=== PATIENT | male | born 1985 | race Caucasian/White ===

== ENCOUNTER 2020-04-12 16:14 | Emergency (ER) | payer SELFPAY ==
--- NOTE | 2020-04-12 17:10 | RAD ---
Exam: Chest one view HISTORY:Chest pain. Comparison: None FINDINGS: Cardiac silhouette: Normal Aorta: Unremarkable Pulmonary vessels: Normal Costophrenic angles: Clear LUNGS: No masses or consolidation. Pneumothorax: None Osseous abnormalities: None IMPRESSION: No acute cardiopulmonary process.
--- NOTE | 2020-04-12 17:11 | RAD ---
Exam:Right foot 3 views HISTORY: Infection. COMPARISON: None FINDINGS: Soft tissue swelling, subcutaneous emphysema involving the fifth digit. There is erosion, d emineralization involving the fifth metacarpal phalangeal joint space. Remaining osseous structures are unremarkable. Remaining joint spaces are preserved. Lisfranc alignment is maintained. IMPRESSION: 1. Osteomyelitis and cellulitis involving the fifth digit. There is presumed septic joint involving t he fifth metacarpal phalangeal joint space. There is erosion, destruction and subluxation of the fifth metacarpal phalangeal joint space.
[2020-04-12] MEDS ORDERED: Ibuprofen 800 MG TAB ONE (17:18)
[2020-04-12] MEDS ORDERED: Cefepime 2 GM VIAL ONE (17:18)
[2020-04-12] MEDS ORDERED: Sodium Chloride 0.9% 1,000 ML ONE ×2 (17:18→19:04)
[2020-04-12] MEDS ORDERED: Sodium Chloride 0.9% 100 ML ONE ×2 (17:18→20:14)
[2020-04-12 17:23] LABS: #Basophils 0.2 thou/uL (0.0-0.2); #Eosinphils 0.3 thou/uL (0.0-0.7); #Lymphocytes 1.7 thou/uL (1.20-3.40); #Monocytes 1.1 thou/uL (0.11-0.59); #Neutrophils 10.6 thou/uL (1.40-6.50); %Basophils 1.2 % (0.0-1.0); %Lymphocytes 12.2 % (21.0-51.0); %Monocytes 7.6 % (0.0-10.0); Hemoglobin 13.6 g/dL (14.0-18.0); Mean Corpuscular HGB CONC 32.7 g/dL (32.0-36.0); Mean Corpuscular Hemoglobin 26.4 pg (27.0-31.0); Mean Corpuscular Volume 80.7 fL (78.0-98.0); Mean Platelet Volume 5.8 fL (7.4-10.4); Platelet Count 550 thou/uL (130-400); RBC Distribution Width 11.5 % (11.5-14.5); Red Blood Cell (RBC) Count 5.13 mill/uL (4.70-6.10); White Blood Cell (WBC) Count 13.8 thou/uL (4.8-10.8)
[2020-04-12 17:38] LABS: ALT (SGPT) 27 U/L (8-55); AST (SGOT) 17 U/L (5-34); Albumin 4.3 g/dL (3.5-5.0); Alkaline Phosphatase 63 U/L (40-110); Anion Gap 20 mmol/L (10-20); BUN (Urea Nitrogen) 8 mg/dL (8.9-20.6); Bilirubin, Total 0.3 mg/dL (0.2-1.2); Calc. Creatinine Clearance 0 mL/min (70-130); Calcium 9.5 mg/dL (7.8-10.44); Carbon Dioxide 22 mmol/L (22-29); Chloride 97 mmol/L (98-107); Globulin 4.2 g/dL (2.4-3.5); Glucose 190 mg/dL (70-105); Potassium 3.8 mmol/L (3.5-5.1); Protein, Total 8.5 g/dL (6.0-8.3); Sodium 135 mmol/L (136-145)
[2020-04-12 17:39] LABS: CRP (Inflammatory) 7.23 mg/dL (= or < 0.5)
[2020-04-12] MEDS ORDERED: Vancomycin 1.5 GRAM/300 ML BAG ONE (18:09)
[2020-04-12 19:33] LABS: Amphetamine Not Detected (NotDetected); Barbiturates Screen Not Detected (NotDetected); Benzodiazepine Screen Not Detected (NotDetected); Cocaine Metabolite Screen Not Detected (NotDetected); Medtox Control Line Valid? VALID (VALID); Methadone Not Detected (NotDetected); Methamphetamine Not Detected (NotDetected); Opiate Screen Not Detected (NotDetected); Oxycodone Screen Not Detected (NotDetected); Phencyclidine (PCP) Not Detected (NotDetected); THC/Cannabinoid Screen Not Detected (NotDetected); Tricyclic Screen Not Detected (NotDetected)
[2020-04-12] MEDS ORDERED: Vancomycin HCl 500 MG VIAL ONE (20:14)
[2020-04-12] MEDS ORDERED: Clindamycin/D5W 900 mg/50 ml Premix Bag ONE (20:36)
== END 2020-04-12 21:17 | disposition short-term general hospital (02) ==
LOC: MADERS 16:14
DX: E11.69 Type 2 diabetes mellitus with other specified complication (principal); M86.9 Osteomyelitis, unspecified; L03.115 Cellulitis of right lower limb; M10.9 Gout, unspecified; Z79.84 Long term (current) use of oral hypoglycemic drugs; Z79.899 Other long term (current) drug therapy
CPT/HCPCS: 36415; 71045; 80053; 80306; 82550; 83605; 84443; 85025; 86140; 87040; 87070; 87077; 87186; 87205; 94760; 96365; 96366; 96367; 96368; J0692; J3370; J3490; J7050

== ENCOUNTER 2020-10-28 08:45 | Emergency (ER) | payer OTHER, SELFPAY ==
[2020-10-28] MEDS ORDERED: Cephalexin 500 MG CAP ONE (10:26)
== END 2020-10-28 10:33 | disposition home or self-care (01) ==
LOC: MADERS 08:45
DX: S92.342A Displaced fracture of fourth metatarsal bone, left foot, initial encounter for closed fracture (principal); E11.9 Type 2 diabetes mellitus without complications; I10 Essential (primary) hypertension; M10.9 Gout, unspecified; Z79.899 Other long term (current) drug therapy; Z79.84 Long term (current) use of oral hypoglycemic drugs

== ENCOUNTER 2020-11-01 08:22 | Emergency (ER) | payer SELFPAY ==
[~2020-11-01 08:22] MED LIST: Sodium Chloride 0.9% 1,000 ML BAG ONE
[2020-11-01] MEDS ORDERED: Sodium Chloride 0.9% 250 ML 250 ML ONE (09:01)
[2020-11-01 09:07] LABS: #Basophils 0.2 thou/uL (0.0-0.2); #Eosinphils 0.5 thou/uL (0.0-0.7); #Lymphocytes 1.8 thou/uL (1.20-3.40); #Monocytes 0.6 thou/uL (0.11-0.59); %Basophils 1.4 % (0.0-1.0); %Eosinophils 4.1 % (0.0-10.0); %Lymphocytes 16.5 % (21.0-51.0); %Monocytes 5.1 % (0.0-10.0); %Neutrophils 72.9 % (42.0-75.0); Hemoglobin 12.8 g/dL (14.0-18.0); Mean Corpuscular HGB CONC 33.2 g/dL (32.0-36.0); Mean Corpuscular Hemoglobin 27.2 pg (27.0-31.0); Mean Corpuscular Volume 82.1 fL (78.0-98.0); Mean Platelet Volume 6.6 fL (7.4-10.4); Platelet Count 453 thou/uL (130-400); RBC Distribution Width 11.9 % (11.5-14.5); Red Blood Cell (RBC) Count 4.71 mill/uL (4.70-6.10); White Blood Cell (WBC) Count 10.9 thou/uL (4.8-10.8)
[2020-11-01 09:15] LABS: Base Excess-Venous -1.2 mmol/L (-2.0 to 3.0); CO2 Tension (PvCO2) 46.4 mmHg (42.0-51.0); Calcium, Ionized 1.19 mmol/L (1.15-1.33); Chloride 100 mmol/L (98-107); Hemoglobin - Calc 13.9 g/dL (14.0-18.0); Potassium 3.9 mmol/L (3.5-5.1); Sodium 136 mmol/L (138-145); T. Carbon Dioxide 26.4 mmol/L (22.0-28.0); vO2 Saturation-calc 76.6 % (60.0-85.0)
[2020-11-01 09:23] LABS: ALT (SGPT) 43 U/L (8-55); AST (SGOT) 35 U/L (5-34); Albumin 4.1 g/dL (3.5-5.0); Alkaline Phosphatase 83 U/L (40-110); Anion Gap 21 mmol/L (10-20); BUN (Urea Nitrogen) 9 mg/dL (8.9-20.6); Bilirubin, Total 0.5 mg/dL (0.2-1.2); Calc. Creatinine Clearance 0 mL/min (70-130); Calcium 9.1 mg/dL (7.8-10.44); Carbon Dioxide 20 mmol/L (22-29); Chloride 99 mmol/L (98-107); Globulin 3.4 g/dL (2.4-3.5); Glucose 285 mg/dL (70-105); Potassium 4.2 mmol/L (3.5-5.1); Protein, Total 7.5 g/dL (6.0-8.3); Sodium 136 mmol/L (136-145)
[2020-11-01] MEDS ORDERED: Sodium Chloride 0.9% 100 ML ONE (11:29)
[2020-11-01] MEDS ORDERED: Piperacillin/Tazobactam 4.5 GM VIAL ONE (11:29)
== END 2020-11-01 12:58 | disposition short-term general hospital (02) ==
LOC: MADERS 08:22
DX: L97.529 Non-pressure chronic ulcer of other part of left foot with unspecified severity (principal); Z91.19 Patient's noncompliance with other medical treatment and regimen; I10 Essential (primary) hypertension; E11.9 Type 2 diabetes mellitus without complications; Z79.84 Long term (current) use of oral hypoglycemic drugs; Z79.899 Other long term (current) drug therapy
CPT/HCPCS: 80053; 82330; 82803; 83605; 85025; 85652; 86140; 87040; 96365; 96367; J2543; J3370; J3490; J7050

== ENCOUNTER 2025-02-14 07:43 | Emergency (ER) | payer SELFPAY ==
[2025-02-14] MEDS ORDERED: Cefepime 2 GM VIAL ONE (08:44)
[2025-02-14 08:51] LABS: Hematocrit 38.3 % (42.0-52.0); Hemoglobin 11.9 g/dL (14.0-18.0); Mean Corpuscular Hemoglobin 24.7 pg (27.0-31.0); Mean Corpuscular Volume 79.7 fl (78.0-98.0); Platelet Count 605 10x3/uL (130-400); Red Blood Cell (RBC) Count 4.81 mill/uL (4.70-6.10); White Blood Cell (WBC) Count 25.2 10x3/uL (4.8-10.8)
[2025-02-14 08:55] LABS: INR-International Normal Ratio 1.3; Prothrombin Time 15.9 sec (12.0-14.7)
[2025-02-14 08:56] LABS: PTT 31.6 sec (22.9-36.1)
[2025-02-14 09:00] LABS: ALT (SGPT) Less than 4 U/L (Less than 45); AST (SGOT) 38 U/L (11-34); Albumin 2.1 g/dL (3.1-4.5); Alkaline Phosphatase 127 U/L (40-110); Anion Gap 21 mmol/L (10-20); BUN (Urea Nitrogen) 47 mg/dL (8.9-20.6); Bilirubin, Total 0.5 mg/dL (0.3-1.2); Calc. Creatinine Clearance 0 mL/min (70-130); Calcium 9.8 mg/dL (7.8-10.44); Carbon Dioxide 21 mmol/L (22-29); Chloride 88 mmol/L (98-107); Globulin 6.6 g/dL (2.4-3.5); Glucose 360 mg/dL (70-105); Potassium 3.5 mmol/L (3.5-5.1); Sodium 126 mmol/L (136-145)
[2025-02-14] MEDS ORDERED: Acetaminophen 500 MG TAB ONE (09:07)
[2025-02-14 09:11] LABS: Platelet Adequacy Comment Appears Increased
[2025-02-14 09:40] LABS: Magnesium 1.7 mg/dL (1.6-2.6)
[2025-02-14 09:44] LABS: Troponin I Less than 0.010 ng/mL (< 0.028)
[2025-02-14 09:48] LABS: Bicarbonate (HCO3v) 20.5 mmol/L (22.0-28.0); CO2 Tension (PvCO2) 38.8 mmHg (42.0-51.0); Calcium, Ionized 1.11 mmol/L (1.15-1.33); Chloride 93 mmol/L (98-107); Hemoglobin - Calc 12.6 g/dL (14.0-18.0); Potassium 3.4 mmol/L (3.5-5.1); Sodium 124 mmol/L (138-145); T. Carbon Dioxide 21.7 mmol/L (22.0-28.0); vO2 Saturation-calc 85.1 % (60.0-85.0)
[2025-02-14] MEDS ORDERED: Ketorolac Tromethamine 30 MG (1 mL) VIAL ONE (10:21)
[2025-02-14 10:25] LABS: Bacteria/HPF Rare-Few HPF (None Seen); CAUTI Indications for Culture Fever or rigors; Glucose, Urine (Dipstick) 250 mg/dL (Negative); Leukocyte Negative (Negative); Protein, Urine (Dipstick) Negative (Neg-Trace); RBC/HPF 0-3 HPF (0-3); Specific Gravity, Urine 1.020 (1.005-1.030); WBC/HPF 0-3 HPF (0-3)
[2025-02-14 10:26] LABS: Urine Culture Reflex No No
== END 2025-02-14 13:39 | disposition short-term general hospital (02) ==
LOC: MADERS 07:43
DX: A41.9 Sepsis, unspecified organism (principal); M86.171 Other acute osteomyelitis, right ankle and foot; M72.6 Necrotizing fasciitis; I10 Essential (primary) hypertension; E11.9 Type 2 diabetes mellitus without complications; E78.5 Hyperlipidemia, unspecified; Z89.422 Acquired absence of other left toe(s); Z89.421 Acquired absence of other right toe(s)
CPT/HCPCS: 71045; 80053; 81001; 82010; 82330; 82803; 83605; 83735; 84100; 84484; 85025; 85610; 85730; 86140; 87040; 87149; 93005; 94760; 96365; 96366; 96367; 96375; J0692; J1885; J2270; J3373; J3490; J7030; J7120